=== PATIENT | male | born 1960 | race Caucasian/White ===

== ENCOUNTER 2022-03-20 17:07 | Emergency (ER) | payer MEDICARE, MEDICAID ==
[~2022-03-20] VITALS: Ht 175.3 cm; Wt 64.0 kg
[2022-03-20 17:09] VITALS: BP 122/66
[2022-03-20] MEDS ORDERED: IBUPROFEN 600MG TABLET PO ONE (21:15)
== END 2022-03-20 23:25 | disposition home or self-care (01) ==
LOC: ER 17:07
DX: S49.91XA Unspecified injury of right shoulder and upper arm, initial encounter (principal); Z88.8 Allergy status to other drugs, medicaments and biological substances; Y04.0XXA Assault by unarmed brawl or fight, initial encounter; Y93.89 Activity, other specified; Y92.89 Other specified places as the place of occurrence of the external cause; Y99.8 Other external cause status
CPT/HCPCS: 72100; 73030; 99284